=== PATIENT | male | born 1990 | race Caucasian/White ===

== ENCOUNTER 2016-06-11 16:58 | Emergency (ER) | payer OTHER ==
--- NOTE | 2016-06-11 17:03 | ER Document Report ---
ED Medical Screen (RME) - General Stated Complaint: CUT LEG Time seen by provider: 17:01 Mode of Arrival: Ambulatory Information source: Patient Notes: 25-year-old male presents to ED for a laceration to his left lower leg on a hold at work states that his last tetanus shot was a good while ago not sure the date. Laceration is 4 cm to medial right calf. I have greeted and performed a rapid initial assessment of this patient. A comprehensive ED assessment and evaluation of the patient, analysis of test results and completion of medical decision making process will be conducted by an additional ED providers.
[2016-06-11] MEDS ORDERED: OXYCODONE-ACETAMINOPHEN 5-325 MG TABLET PO ONE (17:04)
[2016-06-11] MEDS ORDERED: LIDOCAINE 1% INJ-PF (10 MG/ML) 30 ML SDV INJ ONE (18:42)
--- NOTE | 2016-06-11 18:46 | ER Document Report ---
ED Wound - General Chief Complaint: Laceration Stated Complaint: CUT LEG Mode of Arrival: Ambulatory Notes: He shouldn't is a 25-year-old male presents emergency department after a metal pick on a ladder cut his right calf. Evidence of a 6 cm laceration. Dates that his tetanus was approximately 7 years ago. Otherwise denies any past medical history except for high blood pressure. Past surgical history for appendectomy and T&A. Denies any tobacco, alcohol, drug use TRAVEL OUTSIDE OF THE [place] IN LAST 30 DAYS: No - Related Data Allergies/Adverse Reactions: No Known Allergies Allergy (Unverified 06/11/16 17:04) Past Medical History - General Information source: Patient - Social History Smoking Status: Never Smoker Chew tobacco use (# tins/day): No Frequency of alcohol use: None Drug Abuse: None Family History: Reviewed & Not Pertinent Patient has suicidal ideation: No Patient has homicidal ideation: No - Past Medical History Cardiac Medical History: Reports: Hx Hypertension Renal/ Medical History: Denies: Hx Peritoneal Dialysis Past Surgical History: Reports: Hx Appendectomy, Hx Tonsillectomy - Immunizations Hx Diphtheria, Pertussis, Tetanus Vaccination: Yes - 5 years ago Review of Systems - Review of Systems Constitutional: No symptoms reported EENT: No symptoms reported Cardiovascular: No symptoms reported Respiratory: No symptoms reported Gastrointestinal: No symptoms reported Genitourinary: No symptoms reported Male Genitourinary: No symptoms reported Musculoskeletal: No symptoms reported Skin: See HPI Hematologic/Lymphatic: No symptoms reported Neurological/Psychological: No symptoms reported Physical Exam - Vital signs Vitals: Pulse Resp BP Pulse Ox 82 18 115/95 H 97 06/11/16 17:06 06/11/16 17:06 06/11/16 17:06 06/11/16 17:06 - General General appearance: Appears well, Alert In distress: None - Cardiovascular Pulses: Normal: Posterior tibial, Dorsalis pedis Normal capillary refill: Yes - Extremities General lower extremity: Nontender, Normal color, Normal ROM, Normal strength, Normal temperature, Normal weight bearing. No: Edema, Hemanth's sign Calf: Tender, Laceration - 6cm. No: Ecchymosis, Instability - Neurological Motor strength normal: LLE, RLE Sensory: Normal - Skin Skin Temperature: Warm Skin Moisture: Dry Skin Color: Normal Skin irregularity: Laceration Location of irregularity: Extremities Character of irregularity: Linear Irregularity with: negative: Swelling, Tenderness, Warmth, Induration, Thickening, Inflammation Course - Re-evaluation Re-evalutation: 06/11/16 20:09 Patient is a 25-year-old male presents emergency Department complaining of flaccid on the left calf. No evidence of retained foreign body on x-ray. Patient given tetanus immunization and lack closed with 4.0 nylon interrupted sutures. Patient educated on suture care and indicated follow-up in at least 2 weeks for suture removal and wound care. - Vital Signs Vital signs: Temp Pulse Resp BP Pulse Ox 98.7 F 82 18 115/95 H 97 06/11/16 17:07 06/11/16 17:06 06/11/16 17:06 06/11/16 17:06 06/11/16 17:06 - Diagnostic Test Radiology reviewed: Image reviewed, Reports reviewed Procedures - Laceration/Wound Repair Right Leg Wound length (cm): 6 Wound's Depth, Shape: Superficial, Linear Laceration pre-procedure: Sterile PPE donned, Betadine prep applied, Sterile drapes applied, Shur-Clens applied Anesthetic type: 1% Lidocaine Volume Anesthetic (mLs): 10 Wound explored: Clean, No foreign body removed Irrigated w/ Saline (mLs): 30 Wound Debrided: Minimal Wound Repaired With: Sutures Suture Size/Type: 4:0, Nylon Number of Sutures: 9 Layer Closure?: No Post-procedure wound care: Sterile dressing applied Post-procedure NV exam normal: Yes Complications: Yes Discharge - Discharge Clinical Impression: Laceration Condition: Good Disposition: HOME, SELF-CARE Instructions: Antibiotic Ointment Protection ([facility]), Soap Cleansing ([facility]), Tetanus Immunization Given ([facility]), Laceration Care ([facility]), Prophylactic Antibiotic ([facility]) Additional Instructions: -Please follow up with your PCP for suture removal in 2-3 weeks Prescriptions: Cephalexin Monohydrate [Keflex 500 mg Capsule] 500 mg PO BID #20 capsule Ibuprofen [Motrin 800 mg Tablet] 800 mg PO Q8H PRN #30 tab PRN Reason: Forms: Return to Work Referrals: MARITO EASLEY MD [Primary Care Provider] - Follow up in 1 month (2-3 weeks )
[2016-06-11] MEDS ORDERED: CEPHALEXIN 500 MG CAPSULE PO ONE (20:11)
[2016-06-11] MEDS ORDERED: DIPH/PERTUSS(ACELL)/TETANUS VAC/PF 0.5 ML SYR (>=10YO) IM ONE (20:13)
[2016-06-11 20:38] VITALS: BP 127/90
== END 2016-06-11 20:26 | disposition home or self-care (01) ==
LOC: ER 16:58
PROC: 0HQKXZZ Repair Right Lower Leg Skin, External Approach (ICD-10-PCS; principal; 2016-06-11)
DX: S81.811A Laceration without foreign body, right lower leg, initial encounter (principal); W45.8XXA Other foreign body or object entering through skin, initial encounter; Y99.0 Civilian activity done for income or pay; I10 Essential (primary) hypertension; Z23 Encounter for immunization
CPT/HCPCS: 99283; 73590; 12002; J3490